=== PATIENT | male | born 1960 | race Caucasian/White ===

== ENCOUNTER 2018-05-08 06:13 | Day surgery (SDC) | payer OTHER ==
[~2018-05-08 06:13] MED LIST: CEFAZOLIN 2 GM/50 ML (PMX) 50 ML IVPB; SOD CHLORIDE 0.9% 1,000 ML IV
[2018-05-08] MEDS: SOD CHLORIDE 0.9% 1,000 ML IV (07:00)
[2018-05-08] MEDS ORDERED: CEFAZOLIN 1 GM INJ (07:00)
[2018-05-08] MEDS ORDERED: SUGAMMADEX SODIUM 200 MG/2 ML VIAL IV (07:00)
[2018-05-08] MEDS ORDERED: METOCLOPRAMIDE 10 MG INJ (07:00)
[2018-05-08] MEDS ORDERED: EPINEPHrine 1 MG INJ (07:00)
[2018-05-08] MEDS: CEFAZOLIN 2 GM/50 ML (PMX) 50 ML IVPB (07:00)
[2018-05-08] MEDS ORDERED: MIDAZOLAM 1 MG/ML 2 ML INJ (07:58)
[2018-05-08] MEDS ORDERED: FENTAnyl 50 MCG/ML VIAL (07:58)
[2018-05-08] MEDS ORDERED: SUCCINYLCHOLINE CHLORIDE 100 MG/5 ML SYG IV (07:59)
[2018-05-08] MEDS ORDERED: ONDANSETRON 4 MG INJ (07:59)
[2018-05-08] MEDS ORDERED: ROCURONIUM 50 MG INJ (07:59)
[2018-05-08] MEDS ORDERED: LIDOCAINE 2% (SDV) 5 ML INJ (07:59)
[2018-05-08] MEDS ORDERED: PROPOFOL 20 ML (07:59)
[2018-05-08] MEDS ORDERED: MEPERIDINE 25 MG INJ IV (09:00)
[2018-05-08] MEDS ORDERED: KETOROLAC 30 MG INJ IV (09:00)
[2018-05-08] MEDS ORDERED: LABETALOL HCL 20MG INJ IV (09:00)
[2018-05-08] MEDS ORDERED: HYDROmorphONE 1 MG/5 ML IV SYRINGE IV ×2 (09:00)
[2018-05-08] MEDS ORDERED: DIPHENHYDRAMINE 50 MG INJ IV (09:00)
[2018-05-08] MEDS ORDERED: ONDANSETRON 4 MG INJ IV (09:00)
[2018-05-08] MEDS ORDERED: FENTAnyl 50 MCG/ML VIAL IV ×2 (09:00)
[2018-05-08] MEDS ORDERED: hydrALAzine 20 MG INJ IV (09:00)
[2018-05-08] MEDS ORDERED: IPRATROPIUM (NEB) 0.5 MG/2.5 ML AMP HHN (09:00)
[2018-05-08] MEDS ORDERED: ROPIVACAINE 0.5 % 30 ML VIAL ×2 (09:21)
[2018-05-08] MEDS: BUPIVACAINE 0.25% (MPF) 30 ML INJ (09:29)
[2018-05-08] MEDS: POLYMYXIN/BACITRACIN 1L IRRIG IRR (09:29)
[2018-05-08] MEDS ORDERED: POLYMYXIN/BACITRACIN 1L IRRIG (10:16)
[2018-05-08] MEDS: HYDROCODONE/APAP (5/325) TAB PO (11:17)
== END 2018-05-08 12:15 | disposition home or self-care (01) ==
LOC: SDS 06:13
DX: K43.6 Other and unspecified ventral hernia with obstruction, without gangrene (principal); I10 Essential (primary) hypertension; E66.9 Obesity, unspecified; Z68.34 Body mass index [BMI] 34.0-34.9, adult
CPT/HCPCS: 49653; 88302